=== PATIENT | female | born 1980 | race Caucasian/White ===

== ENCOUNTER 2016-12-30 14:22 | Emergency (ER) | payer MEDICAID ==
[~2016-12-30] VITALS: Ht 154.9 cm; Wt 74.8 kg
[~2016-12-30 14:22] MED LIST: VIC PO
[2016-12-30 14:33] VITALS: BP 114/69
--- NOTE | 2016-12-30 15:00 | NUR ---
Patient to bed 3 at this time.
--- NOTE | 2016-12-30 15:02 | NUR ---
36/F BIB SELF C/O EPIGASTRIC PAIN X1 DAY. PT DENIES N/V/D; SKIN IS PINK/WARM/DRY; AAOX4 WITH EVEN AND STEADY GAIT; LUNGS CLEAR BL; HR EVEN AND REGULAR; PT DENIES ANY FEVER, CP, SOB, OR COUGH AT THIS TIME; PATIENT STATES PAIN OF 9/10 AT THIS TIME; VSS; PATIENT POSITIONED FOR COMFORT; HOB ELEVATED; BEDRAILS UP X2; BED DOWN. ER MD MADE AWARE OF PT STATUS.
[2016-12-30] MEDS ORDERED: KETOROLAC 60 MG/2 ML VIAL IM ONE (15:45)
[2016-12-30 16:14] VITALS: BP 103/71
--- NOTE | 2016-12-30 16:14 | NUR ---
Patient discharged with v/s stable. Written and verbal after care instructions given and explained. Patient alert, oriented and verbalized understanding of instructions. Ambulatory with steady gait. All questions addressed prior to discharge. ID band removed. Patient advised to follow up with PMD. Rx of MOTRIN ,NORCO & CIPRO given. Patient educated on indication of medication including possible reaction and side effects. Opportunity to ask questions provided and answered.
== END 2016-12-30 16:14 | disposition home or self-care (01) ==
LOC: MED 14:22
DX: N39.0 Urinary tract infection, site not specified (principal); Z90.49 Acquired absence of other specified parts of digestive tract
CPT/HCPCS: 81002; 81025; 96372; 99283; J1885

== ENCOUNTER 2019-12-31 17:36 | Emergency (ER) | payer MEDICAID, SELFPAY ==
[~2019-12-31] VITALS: Ht 162.6 cm; Wt 90.7 kg
[2019-12-31 17:46] VITALS: BP 123/75
[2019-12-31 18:49] VITALS: BP 123/75
== END 2019-12-31 18:45 | disposition home or self-care (01) ==
LOC: EEVIPCON 17:36 → MED 17:36
DX: O26.893 Other specified pregnancy related conditions, third trimester (principal); Z20.828 Contact with and (suspected) exposure to other viral communicable diseases; O21.8 Other vomiting complicating pregnancy; R50.9 Fever, unspecified; R51 Headache; Z79.899 Other long term (current) drug therapy; Z90.49 Acquired absence of other specified parts of digestive tract; Z3A.37 37 weeks gestation of pregnancy
CPT/HCPCS: 36415; 87804; 99283

== ENCOUNTER 2023-05-03 13:47 | Emergency (ER) | payer MEDICAID ==
[~2023-05-03] VITALS: Ht 154.9 cm; Wt 77.1 kg
[2023-05-03 14:03] VITALS: BP 132/76; PULSE 78; RESP 18; TEMP 98; O2SAT 98
[2023-05-03] MEDS ORDERED: NACL 0.9% 1,000 ML IV SCH (14:30)
[2023-05-03] MEDS ORDERED: ONDANSETRON 4 MG/2 ML VIAL IVP ONE (14:30)
[2023-05-03 15:24] LABS: BASOPHILS % (AUTO) 0.5 % (0.0-2.0); EOSINOPHILS # (AUTO) 0.1 K/uL (0-0.4); HEMATOCRIT 37.5 % (36-48); HEMOGLOBIN 12.7 g/dL (12.0-16.0); LYMPHOCYTES # (AUTO) 1.5 K/uL (2.5-16.5); LYMPHOCYTES % (AUTO) 19.5 % (20.5-51.1); MEAN CORPUSCULAR HEMOGLOBIN 31 pg (27-31); MEAN CORPUSCULAR HGB CONC 34 g/dL (33-37); MEAN CORPUSCULAR VOLUME 90.2 fL (80-94); MONOCYTES # (AUTO) 0.6 K/uL (0.8-1.0); NEUTROPHILS # (AUTO) 5.3 K/uL (1.8-7.7); PLATELET COUNT (AUTO) 240 K/uL (140-450); RED BLOOD CELL COUNT(AUTO) 4.15 MIL/uL (4.20-5.40); RED CELL DISTRIBUTION WIDTH 13.4 % (11.6-13.7); WHITE BLOOD COUNT (AUTO) 7.5 K/uL (4.8-10.8)
[2023-05-03 15:44] LABS: ALANINE AMINOTRANSFERASE 34 U/L (12-78); ALBUMIN 3.4 g/dL (3.4-5.0); ALKALINE PHOSPHATASE 50 U/L (50-136); ANION GAP 11.9 (8-16); ASPARTATE AMINOTRANSFERASE 22 U/L (15-37); CALCIUM 8.2 mg/dL (8.5-10.1); CARBON DIOXIDE 27.2 mmol/L (21-32); CHLORIDE 105 mmol/L (98-107); CREATININE 0.9 mg/dL (0.6-1.3); GFR ARICAN-AMERICAN 89 mL/min (>90); GFR NON ARICAN-AMERICAN 73 mL/min (>90); GLUCOSE 104 mg/dL (74-106); POTASSIUM 4.1 mmol/L (3.5-5.1); SODIUM SERUM 140 mmol/L (136-145); TOTAL BILIRUBIN 0.5 mg/dL (0.0-1.0); TOTAL PROTEIN, SERUM 6.9 g/dL (6.4-8.2); UREA NITROGEN, BLOOD 11 mg/dL (7-18)
[2023-05-03] MEDS ORDERED: CALCIUM CARB 600 MG TAB PO ONE (16:25)
[2023-05-03] MEDS ORDERED: [UNRECOGNIZED DRUG - CODE] PO (16:25)
[2023-05-03] MEDS ORDERED: KETOROLAC 30 MG/ML VIAL IVP ONE (16:30)
[2023-05-03] MEDS ORDERED: ONDANSETRON 4 MG/2 ML VIAL ONE (17:07)
[2023-05-03 18:28] VITALS: BP 115/72; PULSE 74; RESP 18; O2SAT 98
== END 2023-05-03 18:28 | disposition home or self-care (01) ==
LOC: MED 13:47
DX: T67.5XXA Heat exhaustion, unspecified, initial encounter (principal); R55 Syncope and collapse; Z90.49 Acquired absence of other specified parts of digestive tract; Z98.890 Other specified postprocedural states; Z79.899 Other long term (current) drug therapy; X30.XXXA Exposure to excessive natural heat, initial encounter; Y93.89 Activity, other specified; Y92.89 Other specified places as the place of occurrence of the external cause; Y99.8 Other external cause status
CPT/HCPCS: 36415; 70450; 80053; 81002; 81025; 84484; 85025; 93005; 96361; 96374; 96375; 99285; J1885; J2405

== ENCOUNTER 2024-02-13 16:11 | Inpatient (IN) | payer MEDICAID ==
[~2024-02-13] VITALS: Ht 154.9 cm; Wt 82.6 kg
[~2024-02-13 16:11] MED LIST changes: +[UNRECOGNIZED DRUG - CODE] PO
[2024-02-13 16:21] VITALS: BP 123/56; PULSE 79; RESP 18; TEMP 97.5; O2SAT 100
[2024-02-13 16:59] LABS: APPEARANCE,URINE CLEAR (CLEAR); BILIRUBIN,URINE NEGATIVE (NEGATIVE); BLOOD, URINE TRACE-I (NEGATIVE); COLOR,URINE YELLOW (YELLOW); LEUKOCYTE ESTERASE ,URINE TRACE (NEGATIVE); NITRITE, URINE NEGATIVE (NEGATIVE); PROTEIN,URINE NEGATIVE (NEGATIVE); UGLUCOSE NEGATIVE (NEGATIVE); UROBILINOGEN,URINE 0.2 EU/dL (0.2 - 1)
[2024-02-13 17:09] LABS: BASOPHILS # (AUTO) 0.1 K/uL (0.00-0.22); BASOPHILS % (AUTO) 0.5 % (0.0-2.0); EOSINOPHILS # (AUTO) 0.1 K/uL (0-0.4); EOSINOPHILS % (AUTO) 0.7 % (0.0-4.0); HEMATOCRIT 35.1 % (36-48); HEMOGLOBIN 12.4 g/dL (12.0-16.0); LYMPHOCYTES # (AUTO) 1.8 K/uL (2.5-16.5); LYMPHOCYTES % (AUTO) 18.8 % (20.5-51.1); MEAN CORPUSCULAR HEMOGLOBIN 32 pg (27-31); MEAN CORPUSCULAR HGB CONC 35 g/dL (33-37); MEAN CORPUSCULAR VOLUME 89.9 fL (80-94); MONOCYTES # (AUTO) 0.7 K/uL (0.8-1.0); MONOCYTES % (AUTO) 6.9 % (1.7-9.3); NEUTROPHILS % (AUTO) 73.1 % (42.2-75.2); PLATELET COUNT (AUTO) 257 K/uL (140-450); RED BLOOD CELL COUNT(AUTO) 3.91 MIL/uL (4.20-5.40); RED CELL DISTRIBUTION WIDTH 13.9 % (11.6-13.7); WHITE BLOOD COUNT (AUTO) 9.5 K/uL (4.8-10.8)
[2024-02-13 17:23] LABS: ALBUMIN 3.5 g/dL (3.4-5.0); ANION GAP 11.8 (8-16); CALCIUM 8.5 mg/dL (8.5-10.1); CARBON DIOXIDE 25.8 mmol/L (21-32); CREATININE 0.8 mg/dL (0.6-1.3); POTASSIUM 3.6 mmol/L (3.5-5.1); TOTAL BILIRUBIN 0.6 mg/dL (0.0-1.0); TOTAL PROTEIN, SERUM 6.8 g/dL (6.4-8.2)
[2024-02-13] MEDS ORDERED: ONDANSETRON 4 MG/2 ML VIAL IVP PRN (18:55)
[2024-02-13] MEDS ORDERED: HYDROcodone/APAP 5/325 MG 1 TAB TAB PO PRN (18:55)
[2024-02-13] MEDS ORDERED: ACETAMINOPHEN 325 MG TAB PO PRN (18:55)
[2024-02-13] MEDS ORDERED: MORPHINE SULFATE 2 MG/ML SYR IVP PRN (18:55)
[2024-02-13] MEDS: DEXT 5% /NACL 0.9% 1,000 ML IV SCH (19:42)
[2024-02-13 21:00] VITALS: PULSE 75; RESP 18; O2SAT 97
[2024-02-14 06:48] LABS: BASOPHILS % (AUTO) 0.4 % (0.0-2.0); EOSINOPHILS # (AUTO) 0.1 K/uL (0-0.4); EOSINOPHILS % (AUTO) 1.7 % (0.0-4.0); HEMATOCRIT 35.5 % (36-48); HEMOGLOBIN 12.3 g/dL (12.0-16.0); LYMPHOCYTES # (AUTO) 2.1 K/uL (2.5-16.5); LYMPHOCYTES % (AUTO) 28.3 % (20.5-51.1); MEAN CORPUSCULAR HEMOGLOBIN 32 pg (27-31); MEAN CORPUSCULAR HGB CONC 35 g/dL (33-37); MEAN CORPUSCULAR VOLUME 91.1 fL (80-94); MONOCYTES # (AUTO) 0.5 K/uL (0.8-1.0); MONOCYTES % (AUTO) 7.5 % (1.7-9.3); NEUTROPHILS # (AUTO) 4.5 K/uL (1.8-7.7); NEUTROPHILS % (AUTO) 62.1 % (42.2-75.2); PLATELET COUNT (AUTO) 244 K/uL (140-450); RED CELL DISTRIBUTION WIDTH 13.9 % (11.6-13.7); WHITE BLOOD COUNT (AUTO) 7.3 K/uL (4.8-10.8)
[2024-02-14 07:39] LABS: ANION GAP 10.5 (8-16); CALCIUM 8.2 mg/dL (8.5-10.1); CARBON DIOXIDE 27.4 mmol/L (21-32); CREATININE 0.8 mg/dL (0.6-1.3); POTASSIUM 3.9 mmol/L (3.5-5.1)
[2024-02-14 08:00] VITALS: BP 105/73; PULSE 69; RESP 18; TEMP 97.3; O2SAT 97
[2024-02-14 12:00] VITALS: BP 105/73; PULSE 69; RESP 18; TEMP 97.3; O2SAT 97
[2024-02-14 16:00] VITALS: BP 112/71; PULSE 66; RESP 18; TEMP 97.5; O2SAT 98
[2024-02-14 20:00] VITALS: BP 115/70; PULSE 64; RESP 18; TEMP 97.5; O2SAT 99
[2024-02-15 04:00] VITALS: BP 117/68; PULSE 63; RESP 18; TEMP 97.2; O2SAT 100
[2024-02-15 08:00] VITALS: PULSE 56; RESP 18; O2SAT 97
[2024-02-15 12:00] VITALS: BP 117/68; PULSE 56; RESP 18; TEMP 97.2; O2SAT 97
[2024-02-15 15:41] VITALS: BP 125/70; PULSE 56; RESP 18; TEMP 97
== END 2024-02-15 16:45 | disposition home or self-care (01) | DRG 532 ==
LOC: MED 16:11 → MMU 19:32 → MTU 20:16
PROVIDERS: ADMIT Nurse Practitioner Family; ATTEND Nurse Practitioner Family
DX: N83.201 Unspecified ovarian cyst, right side (principal); N83.519 Torsion of ovary and ovarian pedicle, unspecified side; Z79.899 Other long term (current) drug therapy; N83.202 Unspecified ovarian cyst, left side
CPT/HCPCS: 36415; 76856; 80048; 80053; 81003; 82105; 83690; 84702; 85025; 86304; 87081; 99285; Q0092

== ENCOUNTER 2024-04-26 08:06 | Emergency (ER) | payer MEDICAID ==
[~2024-04-26] VITALS: Ht 154.9 cm; Wt 80.7 kg
[2024-04-26 08:13] VITALS: BP 133/82; PULSE 69; RESP 15; TEMP 98.8; O2SAT 100
[2024-04-26] MEDS: ACETAMINOPHEN EXTRA STRENGTH 500 MG TAB PO ONE (10:09)
[2024-04-26 10:20] VITALS: BP 133/82; PULSE 69; RESP 15; TEMP 98.8; O2SAT 100
== END 2024-04-26 10:20 | disposition home or self-care (01) ==
LOC: MED 08:06
DX: N75.1 Abscess of Bartholin's gland (principal); R03.0 Elevated blood-pressure reading, without diagnosis of hypertension
CPT/HCPCS: 99284

== ENCOUNTER 2024-04-29 12:34 | Emergency (ER) | payer MEDICAID ==
[~2024-04-29] VITALS: Ht 153.7 cm; Wt 81.2 kg
[2024-04-29 12:52] VITALS: BP 136/82; PULSE 75; RESP 16; TEMP 97.4; O2SAT 99
== END 2024-04-29 14:39 | disposition home or self-care (01) ==
LOC: MED 12:34
DX: N75.1 Abscess of Bartholin's gland (principal); R03.0 Elevated blood-pressure reading, without diagnosis of hypertension
CPT/HCPCS: 99284

== ENCOUNTER 2024-05-03 15:34 | Emergency (ER) | payer MEDICAID ==
[~2024-05-03] VITALS: Ht 154.9 cm; Wt 81.3 kg
[2024-05-03 15:41] VITALS: BP 133/77; PULSE 74; RESP 16; TEMP 98.1; O2SAT 99
[2024-05-03] MEDS ORDERED: MEDR10TA PO (16:23)
[2024-05-03 17:01] LABS: APPEARANCE,URINE SL CLOUDY (CLEAR); BILIRUBIN,URINE 1+ (NEGATIVE); BLOOD, URINE 3+ (NEGATIVE); COLOR,URINE YELLOW (YELLOW); LEUKOCYTE ESTERASE ,URINE NEGATIVE (NEGATIVE); NITRITE, URINE NEGATIVE (NEGATIVE); PROTEIN,URINE TRACE (NEGATIVE); UGLUCOSE NEGATIVE (NEGATIVE)
[2024-05-03 17:03] LABS: BASOPHILS # (AUTO) 0.1 K/uL (0.00-0.22); BASOPHILS % (AUTO) 0.7 % (0.0-2.0); EOSINOPHILS # (AUTO) 0.1 K/uL (0-0.4); HEMATOCRIT 37.8 % (36-48); HEMOGLOBIN 12.9 g/dL (12.0-16.0); LYMPHOCYTES # (AUTO) 2.2 K/uL (2.5-16.5); LYMPHOCYTES % (AUTO) 32.3 % (20.5-51.1); MEAN CORPUSCULAR HEMOGLOBIN 31 pg (27-31); MEAN CORPUSCULAR HGB CONC 34 g/dL (33-37); MEAN CORPUSCULAR VOLUME 89.7 fL (80-94); MONOCYTES # (AUTO) 0.6 K/uL (0.8-1.0); MONOCYTES % (AUTO) 8.5 % (1.7-9.3); NEUTROPHILS # (AUTO) 3.9 K/uL (1.8-7.7); NEUTROPHILS % (AUTO) 56.5 % (42.2-75.2); PLATELET COUNT (AUTO) 238 K/uL (140-450); RED BLOOD CELL COUNT(AUTO) 4.21 MIL/uL (4.20-5.40); RED CELL DISTRIBUTION WIDTH 13.1 % (11.6-13.7); WHITE BLOOD COUNT (AUTO) 6.9 K/uL (4.8-10.8)
[2024-05-03 17:04] LABS: ICTOTEST POSITIVE (NEGATIVE); RBC,URINE 20-50 /HPF (0-5); WBC,URINE 0-5 /HPF (0-5)
[2024-05-03 17:05] LABS: BACTERIA,URINE 1+ /HPF (None Seen); MUCUS,URINE None Seen /LPF (None Seen); SQUAMOUS EPITHELIAL CELL,UR 4-10 (MOD) /LPF (0-3 (FEW))
[2024-05-03 18:46] VITALS: BP 133/77; PULSE 74; RESP 16; TEMP 98.1; O2SAT 99
== END 2024-05-03 18:47 | disposition home or self-care (01) ==
LOC: MED 15:34
DX: N93.8 Other specified abnormal uterine and vaginal bleeding (principal); Z90.49 Acquired absence of other specified parts of digestive tract; Z79.899 Other long term (current) drug therapy
CPT/HCPCS: 36415; 76830; 81001; 85025; 99284; Q0092